=== PATIENT | male | born 1955 | race Caucasian/White ===

== ENCOUNTER 2017-11-22 07:52 | Day surgery (SDC) | payer BC ==
--- NOTE | 2017-11-03 14:13 | HISTORY AND PHYSICAL ---
DATE OF SERVICE: PANENDOSCOPY HISTORY AND PHYSICAL HISTORY OF PRESENT ILLNESS: The patient was seen in the office on 10/16/17 and scheduled for panendoscopy on 11/22/2017. He has a history of short-segment Steve's and was in need of surveillance EGD. There is no past history for high-grade dysplasia and his last EGD was 3 years ago. He was in need of surveillance colonoscopy as well. He has a past history of adenomatous colonic polyps. His last colonoscopy was 5 years ago. PAST MEDICAL HISTORY: Significant for hypertension and hyperlipidemia. He has been feeling well. Denied dysphagia, abdominal pain, melena or bright red blood per rectum. There has been no change in bowel habits and no weight loss. PHYSICAL EXAMINATION: GENERAL: Reveals a pleasant white male, in no acute distress. VITAL SIGNS: He is 5 feet 9 inches tall and 202.8 pounds. Blood pressure was 120/84. HEENT: Oral cavity revealed no evidence for exudate. He has a Mallampati class 3 oropharyngeal configuration. CHEST: Clear. CARDIOVASCULAR: Revealed regular rate and rhythm without murmur, S3 or S4. ABDOMEN: Soft, supple without mass, organomegaly or tenderness. EXTREMITIES: Revealed no cyanosis, clubbing or edema. ASSESSMENT: The patient is set up for a panendoscopy for reasons contained in the HPI on 11/22/2017. Prep instructions with Suprep kit were given and questions were answered. Job ID: [id number] DocumentID: [id number] Dictated Date: 11/03/2017 13:50:57 Fondant Machine Operator Date: 11/03/2017 14:12:24 Dictated By: VANDANA MARTINEZ MD [facility]
[~2017-11-22] VITALS: Ht 175.3 cm; Wt 93.0 kg
[~2017-11-22 07:52] MED LIST: ASP81TEC PO; ATOR40TA PO; ATOR40TA70 PO; BENA10TA2 PO; CHOL10003 PO; CHOL100084 PO; FENO134C PO; FENO145T2 PO; FEXO1TAB49 PO; LORA10TA76 PO; MULT-35 PO; MULT-974 PO; PANT20TA2 PO; PANT40TA3 PO
--- OUTSIDE RECORDS SUMMARY | 2017-11-22 07:56 | XMS REPORT ---
Author TIM Hoff Organization [employer] Address Unknown Phone Unavailable Care Team Providers Care Aircraft Navigator Name Role Phone TIM CARDENAS CP Unavailable Allergies No Known Allergies Problems Problem Type Condition Code Onset Dates Condition Status Problem ZOSTAVAX DX V05.8 Active Assessment Encounter for immunization Z23 Active Problem Need for prophylactic vaccination and inoculation, Influenza V04.81 Active Medications No Known Medications Procedures Procedure Coding System Code Date SINGLE IMMUNIZATION ADMIN CPT-4 25626 Apr 09, 2015 FLUARIX QUAD (3 & UP)-GSK-2014 CPT-4 99361 Apr 09, 2015 Results No Known Results Immunizations Vaccine Administration Date FLUARIX QUAD (3 & UP)-GSK-2014Apr 09, 2015 Summary Purpose [employer] Submission
[2017-11-22] MEDS ORDERED: D5 LR IV SOLUTION 1,000 ML IV ONE (08:01)
--- NOTE | 2017-11-22 08:02 | Pre-Op Note & Conscious Sedat ---
Pre-Operative Progress Note H&P Reviewed The H&P was reviewed, patient examined and no changes noted. Date H&P Reviewed: November 22, 2017 Time H&P Reviewed: 08:01 Conscious Sedation Pre-Proced ASA Class: 2 Airway Mallampati Classification: (rincon appropriate class) I. II. III, IV Lungs Heart ASA score ASA 1: a normal healthy patient ASA 2: a patient with a mild systemic disease (mid diabetes, controlled hypertension, obesity ASA 3: a patient with a severe systemic disease that limits activity (angina , COPD, prior Myocardial infarction) ASA 4: a patient with an incapacitating disease that is a constant threat to life (CHF, renal failure) ASA 5: a moribund patient not expected to survive 24 hrs. (ruptured aneurysm) ASA 6: a declared brain patient whose organs are being harvested. For emergent operations, add the letter E after the classification Grade 3 Sedation Plan: Analgesia, Amnesia, Plan communicated to team members, Discussed options with patient/fam, Discussed risks with patient/fam Note The patient is an appropriate candidate to undergo the planned procedure, sedation, and anesthesia. The patient immediately re-assessed prior to indication. VANDANA MARTINEZ MD November 22, 2017 08:02
[2017-11-22] MEDS ORDERED: D5 LR IV SOLUTION 1,000 ML IV STA (08:04)
[2017-11-22] MEDS ORDERED: HURRICAINE EXT TUBE (BENZOCAINE) XX PRN (08:15)
[2017-11-22] MEDS ORDERED: LIDOCAINE JELLY 2% (XYLOCAINE) 5 ML TUBE MM PRN (08:15)
[2017-11-22 08:18] VITALS: BP 149/91
[2017-11-22] MEDS ORDERED: fentaNYL INJECTION 100 MCG/2 ML AMP ONE (08:25)
[2017-11-22] MEDS ORDERED: MIDAZOLAM 2 MG/2 ML (VERSED) VIAL ONE ×4 (08:25→09:14)
[2017-11-22] MEDS ORDERED: LIDOCAINE JELLY 2% (XYLOCAINE) 5 ML TUBE ONE (08:25)
[2017-11-22] MEDS ORDERED: HURRICAINE EXT TUBE (BENZOCAINE) ONE (08:25)
[2017-11-22] MEDS: fentaNYL INJECTION 100 MCG/2 ML AMP IVP PRN ×2 (08:53→08:56)
[2017-11-22] MEDS: MIDAZOLAM 2 MG/2 ML (VERSED) VIAL IVP PRN ×3 (08:55→09:24)
[2017-11-22 10:00] VITALS: BP 128/69
[2017-11-22 10:25] VITALS: BP 114/71
[2017-11-22 10:57] VITALS: BP 114/71
--- NOTE | 2017-11-22 15:37 | OPERATIVE REPORT ---
DATE OF SERVICE: PANENDOSCOPY SUMMARY Colonoscopy was performed due to past history of colon polyps and EGD was performed for the evaluation of short-segment Steve's. The patient was placed in left lateral decubitus position. Prior to doing colonoscopy, digital rectal evaluation was performed. Anal sphincter tone was normal and the perianal reflexes intact. Prostate is mildly enlarged, anodular and nontender to digital inspection. No other abnormalities, no additional inspection of the anal canal or distal rectal vault. The colonoscope was then inserted into the rectum under direct visualization advanced to the cecum. The cecum was identified by identification of the ileocecal valve and cecal strap. Photographic documentation was obtained. Careful inspection was made as colonoscope was withdrawn. The quality of prep was good. FINDINGS: No evidence for internal or external hemorrhoids and the rectum was unremarkable. There were several small 1 mm hyperplastic appearing polyps. The cecum revealed a [id number] number of small to medium size diverticulum without evidence for diverticulitis. No other abnormalities were noted in the cecum. The descending colon, splenic flexure, transverse colon and hepatic flexure were unremarkable. Present in the mid ascending colon was a questionable 3/4 mm sessile polyp. It was photographed and biopsied and ablated with no subsequent blood loss. The remainder of the ascending colon and cecum were unremarkable. ASSESSMENT: 1. Several small 1 mm hyperplastic appearing rectal polyps were noted and left. 2. Fzny-jl-lwdfsfgk diverticular disease predominantly in the sigmoid colon without evidence for diverticulitis were noted. There was 1 distal ascending colonic diverticulum as well. 3. One diminutive polyp 3 to 4 mm in size from the mid ascending colonbiopsied, ablated and submitted for histopathology. 4. Digital rectal evaluation was compatible with mild benign prostatic hypertrophy. As long as there is no surprise on the above histopathology report, we will only advocate repeat screening colonoscopy in 5 to 10 years. We then proceeded with EGD. The endoscope was inserted in the oral cavity and under direct visualization, the esophagus was intubated. The scope was passed down the esophagus through the stomach and second portion of duodenum. Careful inspection was made and the endoscope was withdrawn. FINDINGS: The Z-line appeared to be somewhat proximally placed at 37 cm from the incisoral orifice. Again, noted was a 3 cm segment of Steve's esophagus without evidence for ulceration, nodularity or visual evidence to suggest malignancy. Four quadrant biopsies were obtained after photograph and submitted for histopathology. Small sliding hiatal hernia was present. There is no evidence for erosive esophagitis. The cardia of the stomach was unremarkable. There were several 1 to 2 mm fundal appearing polyps noted in the fundus with no other abnormalities being appreciated. The antrum, pylorus, pyloric channel, duodenal bulb and second portion of the duodenum were unremarkable. ASSESSMENT: Findings consistent with short segment Steve's with a small hiatal hernia are again noted. Approximately 3 cm of distal esophagus are involved without evidence for erosive esophagitis. Four quadrant biopsies were obtained and submitted for histopathology. As long as there is no evidence for high-grade dysplasia, we will likely be abdicating repeat surveillance EGD in 2 to 3 years. Job ID: [id number] DocumentID: [id number] Dictated Date: 11/22/2017 10:45:05 Technician Anatomic Pathology Date: 11/22/2017 15:36:44 Dictated By: VANDANA MARTINEZ MD [facility]
== END 2017-11-22 10:57 | disposition home or self-care (01) ==
LOC: ENDO 07:52
PROVIDERS: ATTEND Internal Medicine
DX: Z12.11 Encounter for screening for malignant neoplasm of colon (principal); K63.5 Polyp of colon; K62.1 Rectal polyp; K57.30 Diverticulosis of large intestine without perforation or abscess without bleeding; K22.70 Barrett's esophagus without dysplasia; K44.9 Diaphragmatic hernia without obstruction or gangrene; K31.7 Polyp of stomach and duodenum; N40.0 Benign prostatic hyperplasia without lower urinary tract symptoms; I10 Essential (primary) hypertension; E78.5 Hyperlipidemia, unspecified; Z86.010 Personal history of colon polyps
CPT/HCPCS: 88305

== ENCOUNTER 2020-11-09 05:34 | Outpatient (RCR) | payer BC ==
[~2020-11-09] VITALS: Ht 175.3 cm; Wt 93.1 kg
[~2020-11-09 05:34] MED LIST changes: -BENA10TA2 PO; +BENA10TA66 PO; +CHOL200012 PO; +MULT-1136 PO; -PANT40TA3 PO; +PANT40TA52 PO
== END 2020-11-09 09:19 | disposition home or self-care (01) ==
LOC: PREOP 05:34
PROVIDERS: ATTEND Internal Medicine
DX: Z01.812 Encounter for preprocedural laboratory examination (principal); Z20.822 Contact with and (suspected) exposure to COVID-19; Z87.19 Personal history of other diseases of the digestive system
CPT/HCPCS: 87635

== ENCOUNTER 2020-11-11 06:56 | Day surgery (SDC) | payer BC ==
--- NOTE | 2020-11-02 08:15 | HISTORY AND PHYSICAL ---
DATE OF SERVICE: EGD HISTORY AND PHYSICAL HISTORY OF PRESENT ILLNESS: The patient is a 65-year-old white male being set up for surveillance EGD due to past history of short segment Steve's. He last accomplished EGD 3 years ago, at which time no dysplasia was noted. He reports that he has been feeling well. He denies any heartburn symptoms on proton pump inhibitor therapy and has had no dysphagia. He denies melena or bright red blood per rectum. Overall, he has been feeling well. Other health problems addressed include hyperlipidemia, nonalcoholic fatty liver disease with overweight status, BMI between 30 and 35. The patient states he has been feeling well and voices no complaints. PHYSICAL EXAMINATION: GENERAL: Revealed a white male, who appeared to be in no acute distress. HEENT: Unremarkable. CHEST: Clear. CARDIOVASCULAR: Regular rate and rhythm without murmur, S3 or S4. VITAL SIGNS: Blood pressure 140/80, weight was up 4 pounds to 213. ABDOMEN: Soft, supple without mass, organomegaly or tenderness. EXTREMITIES: Reveal no cyanosis, clubbing or edema. ASSESSMENT AND PLAN: 1. The patient is being set up for surveillance EGD due to past history of short segment Steve's without dysplasia. 2. Overweight status. Discussed the importance of regular physical activity, portion control with goal of weight loss 1 to 2 pounds per month. Blood tests were reviewed with the patient and with weight gain, his AST was up slightly to 43 with no significant alcohol consumption reported. Discussed the association with fatty liver, increased risk for vascular disease as well as progressive liver disease over time and the importance of weight loss. Remainder of his chemistry panel, lipid panel and PSA results were unremarkable. Job ID: [id number] DocumentID: [id number] Dictated Date: 10/17/2020 08:55:34 Gang Boss Date: 10/17/2020 09:19:49 Dictated By: VANDANA MARTINEZ MD
[~2020-11-11] VITALS: Ht 175.3 cm; Wt 93.1 kg
[2020-11-11] VITALS (8 sets, daily range): BP systolic 120–158; BP diastolic 57–88
[~2020-11-11 06:56] MED LIST changes: +D5 LR IV SOLUTION 1,000 ML IV ONE
[2020-11-11] MEDS ORDERED: D5 LR IV SOLUTION 1,000 ML IV STA (07:34)
[2020-11-11] MEDS ORDERED: LIDOCAINE JELLY 2% 6 ML SYRINGE ONE (07:38)
[2020-11-11] MEDS ORDERED: HURRICAINE EXT TUBE (BENZOCAINE) ONE (07:38)
[2020-11-11] MEDS ORDERED: fentaNYL INJ 100 MCG/2 ML AMP ONE (07:38)
[2020-11-11] MEDS ORDERED: MIDAZOLAM 5 MG/5 ML (VERSED) VIAL ONE (07:38)
[2020-11-11] MEDS ORDERED: MIDAZOLAM 5 MG/5 ML (VERSED) VIAL IV ONE (07:45)
[2020-11-11] MEDS ORDERED: LIDOCAINE JELLY 2% 6 ML SYRINGE MM PRN (07:45)
[2020-11-11] MEDS ORDERED: HURRICAINE EXT TUBE (BENZOCAINE) XX PRN (07:45)
[2020-11-11] MEDS: fentaNYL INJ 100 MCG/2 ML AMP IVP ONE (07:58)
--- NOTE | 2020-11-11 08:16 | Pre-Op Note & Conscious Sedat ---
Pre-Operative Progress Note H&P Reviewed The H&P was reviewed, patient examined and no changes noted. Date H&P Reviewed: November 11, 2020 Time H&P Reviewed: 07:40 Conscious Sedation Pre-Proced ASA Score 2 For ASA 3 and 4: Consider anesthesia and medical clearance. Also, for patients with a history of failed moderate sedation consider anesthesia. Airway Lungs Heart ASA score ASA 1: a normal healthy patient ASA 2: a patient with a mild systemic disease (mid diabetes, controlled hypertension, obesity ASA 3: a patient with a severe systemic disease that limits activity (angina, COPD, prior Myocardial infarction) ASA 4: a patient with an incapacitating disease that is a constant threat to life (CHF, renal failure) ASA 5: a moribund patient not expected to survive 24 hrs. (ruptured aneurysm) ASA 6: a declared brain- patient whose organs are being harvested. For emergent operations, add the letter E after the classification Mallampati Classification Grade 3 Sedation Plan Analgesia, Amnesia, Plan communicated to team members, Discussed options with patient/fam, Discussed risks with patient/fam The patient is an appropriate candidate to undergo the planned procedure, sedation, and anesthesia. The patient immediately re-assessed prior to indication. VANDANA MARTINEZ MD November 11, 2020 08:15
--- NOTE | 2020-11-11 17:55 | OPERATIVE REPORT ---
DATE OF SERVICE: EGD SUMMARY INDICATION FOR THE PROCEDURE: Surveillance, history of short segment Steve's. DESCRIPTION OF PROCEDURE: The patient was placed in the left lateral decubitus position. The endoscope was inserted into the oral cavity and under direct visualization, esophagus was intubated. The endoscope was passed down the esophagus, stomach and second portion of the duodenum. Careful inspection was made as the endoscope was withdrawn. The patient tolerated the procedure well. FINDINGS: The posterior pharynx, epiglottis, arytenoid aperture, true and false vocal folds were unremarkable to visual inspection. Proximal and mid esophagus were unremarkable. The Z line was proximally placed at 35 cm from the inscissoral orifice secondary to small sliding hiatal hernia and short segment Steve's change. No evidence for ulceration was noted. Photograph was obtained. Four quadrant biopsies were obtained and submitted for histopathology. The cardia and fundus other than several small fundal appearing polyps was unremarkable with no inflammatory change. The antrum, pylorus, pyloric channel, duodenal bulb and second portion of duodenum were unremarkable as well. ASSESSMENT: Findings of short segment Steve's unchanged without evidence for erosive esophagitis or malignancy. Four quadrant biopsies were obtained and we will await histopathology report with likely 3-year screening interval as long as dysplasia is not identified. Continue PPI therapy. Job ID: [id number] DocumentID: [id number] Dictated Date: 11/11/2020 11:28:27 Water Sander Date: 11/11/2020 17:55:14 Dictated By: VANDANA MARTINEZ MD [facility]
== END 2020-11-11 08:50 | disposition home or self-care (01) ==
LOC: ENDO 06:56
PROVIDERS: ATTEND Internal Medicine
DX: K22.70 Barrett's esophagus without dysplasia (principal); K31.89 Other diseases of stomach and duodenum; K44.9 Diaphragmatic hernia without obstruction or gangrene; K76.0 Fatty (change of) liver, not elsewhere classified; E66.3 Overweight; E78.5 Hyperlipidemia, unspecified; Z20.822 Contact with and (suspected) exposure to COVID-19

== ENCOUNTER → 2021-07-10 | Outpatient (CLI) | payer BC ==
[~2021-07-10] MED LIST changes: -D5 LR IV SOLUTION 1,000 ML IV ONE
== END ==
LOC: LABNPT 09:14
PROVIDERS: ATTEND Internal Medicine
DX: Z20.822 Contact with and (suspected) exposure to COVID-19 (principal)
CPT/HCPCS: 87635

== ENCOUNTER 2023-01-02 06:59 | Outpatient (CLI) | payer BC ==
[~2023-01-02] VITALS: Ht 175.3 cm; Wt 95.5 kg
[~2023-01-02 06:59] MED LIST changes: -FENO134C PO; +FENO134C21 PO
[2023-01-04] MEDS ORDERED: FEXO-14 PO (12:45)
== END 2023-01-04 12:55 | disposition home or self-care (01) ==
LOC: PREOP 06:59
PROVIDERS: ATTEND Internal Medicine
DX: Z01.818 Encounter for other preprocedural examination (principal)

== ENCOUNTER 2023-01-11 07:18 | Day surgery (SDC) | payer BC, MEDICARE ==
--- NOTE | 2022-12-31 10:26 | HISTORY AND PHYSICAL ---
DATE OF SERVICE: 01/11/2023 PANENDOSCOPY SUMMARY The patient is undergoing EGD evaluation for Steve's esophagus surveillance and colonoscopy due to the past history of colon polyps. It has been 5 years since his last colonoscopy. He reports that he has been not feeling well, on proton pump inhibitor therapy, has had no dysphagia, no odynophagia, no significant heartburn symptoms. He denies melena or bright red blood per rectum. He has had no abdominal pain. Last year, he had some symptoms suspicious for diverticulitis, this was treated empirically. He has had no recurrence of symptoms. Since I last saw him, he had been in the for melanoma screen. His sister was diagnosed with melanoma at the age of 60, living at the age of 64 as a nurse and orthopedic group in [place]. He reports that his exam was unremarkable. I have taken 1 lesion off of his back, but was not malignant. PHYSICAL EXAMINATION: GENERAL: Reveals a white male, appeared to be in no acute distress. VITAL SIGNS: Weight was down 1.2 pounds at 210.8. Blood pressure 114/70. CHEST: Clear. CARDIOVASCULAR: Reveals regular rate and rhythm without murmur, S3, or S4. ABDOMEN: Soft, supple without mass, organomegaly, or tenderness. EXTREMITIES: No cyanosis, clubbing or edema. ASSESSMENT AND PLAN: The patient is undergoing diagnostic EGD for surveillance due to history of short segment Steve's. He is undergoing diagnostic colonoscopy due to past history of colon polyps, 5 years since his last colonoscopy. Prep instructions were given and questions were answered. The patient will keep his regularly scheduled appointment in May for followup of insulin resistance and hyperlipidemia. He has no known history of coronary artery disease. Job ID: [id number] DocumentID: [id number] Dictated Date: 12/26/2022 11:25:38 Emr Trainer Date: 12/26/2022 12:02:00 Dictated By: VANDANA MARTINEZ MD
[~2023-01-11] VITALS: Ht 175.3 cm; Wt 95.5 kg
[~2023-01-11 07:18] MED LIST changes: +FEXO-14 PO
[2023-01-11] MEDS ORDERED: LACTATED RINGERS 1,000 ML IV STA (07:19)
[2023-01-11] MEDS ORDERED: HURRICAINE EXT TUBE (BENZOCAINE) XX PRN (07:30)
[2023-01-11 07:40] VITALS: BP 139/93
--- NOTE | 2023-01-11 07:54 | Pre-Op Note & Conscious Sedat ---
Pre-Operative Progress Note Date H&P Reviewed: Jan 11, 2023 Time H&P Reviewed: 07:53 History & Physical: H&P Reviewed, Patient Examed, No changes noted Pre-Op Diagnosis: baretts esophagus and screening colon Moderate Sedation PreProcedure ASA Score 2 Airway Lungs Heart ASA score ASA 1: a normal healthy patient ASA 2: a patient with a mild systemic disease (mid diabetes, controlled hypertension, obesity ASA 3: a patient with a severe systemic disease that limits activity (angina, COPD, prior Myocardial infarction) ASA 4: a patient with an incapacitating disease that is a constant threat to life (CHF, renal failure) ASA 5: a moribund patient not expected to survive 24 hrs. (ruptured aneurysm) ASA 6: a declared brain- patient whose organs are being harvested. For emergent operations, add the letter E after the classification Mallampati Classification Grade 2 Sedation Plan Analgesia, Amnesia, Plan communicated to team members, Discussed options with patient/fam, Discussed risks with patient/fam The patient is an appropriate candidate to undergo the planned procedure, sedation, and anesthesia. The patient immediately re-assessed prior to indication. VANDANA MARTINEZ MD Jan 11, 2023 07:53
[2023-01-11] MEDS ORDERED: PROPOFOL INJECTION 50 ML IV ONE (08:11)
--- NOTE | 2023-01-11 08:29 | Anesthesia-General Post-Op ---
MAC Patient Condition Mental Status/LOC: Same as Preop Cardiovascular: Satisfactory Nausea/Vomiting: Absent Respiratory: Satisfactory Pain: Controlled Complications: Absent Post Op Complications Complications None Follow Up Care/Instructions Patient Instructions None needed. Anesthesiology Discharge Order Discharge Order Patient is doing well, no complaints, stable vital signs, no apparent adverse anesthesia problems. No complications reported per nursing. MAURY ROBLES CRNA Jan 11, 2023 08:29
[2023-01-11 08:30] VITALS: BP 109/70
--- NOTE | 2023-01-11 08:33 | Progress Note-Post Operative ---
Post-Procedure Note Physician (s)/Brush And Broom Clipper (s) Physician VANDANA MARTINEZ MD Pre-Procedure Diagnosis Pre-Procedure Diagnosis: baretts esophagus and screening colon Post-Procedure Diagnosis Post-operative diagnosis: the endoscope was inserted into the oral cavity and under direct visualization the esophagus is intubated. The endoscope was passed down the esophagus to stomach and second portion of the duodenum. A careful inspection was made as the endoscope was withdrawn. Findings: The posterior pharynx epiglottis arytenoid aperture and true and false vocal folds were unremarkable gross inspection. Proximal and midesophagus were unremarkable. There were findings compatible short segment Steve's approximately 2 cm of the distal esophagus being involved. There was no erythema or ulceration nodularity or stricture formation noted. Photographic documentation obtained. Four-quadrant biopsies were obtained and submitted for histopathology. The cardia of the stomach was unremarkable. One 6 mm fundal appearing polyp was noted in the mid fundus greater curvature stomach otherwise unremarkable photograph was obtained. The pylorus pyloric channel duodenal bulb and second portion of the duodenum were unremarkable. Assessment Findings again compatible with short segment Steve's without evidence for erosive esophagitis or malignancy were noted. Four-quadrant biopsies were obtained from the Steve's segment approximately involving the distal 2 cm of esophagus. One 6 mm fundal appearing polyp was noted along the greater curvature in the mid fundus with no other abnormalities being appreciated. Will await histopathology report before making recommendations for future surveillance EGD. We then proceeded with colonoscopy. Prior to undergoing colonoscopy digital rectal evaluation was performed. Anal suture tone was normal and the perianal reflexes intact. Prostate is normal in size and a nodular on digital inspection. No abnormalities noted on digital inspection of the anal canal or distal rectal vault. The colonoscope was then inserted into the rectum and under direct visualization advanced to the cecum. The cecum was identified by identification of the ileocecal valve and the cecal strap. Photographic documentation was obtained. Careful suction was made as the colonoscope withdrawn. Quality prep was good. Findings there are no evidence for external hemorrhoids 1 grade 1 internal hemorrhoid complex was noted. Present the proximal rectum was a diminutive hyperplastic appearing polyp it was photographed and biopsied and ablated with no subsequent blood loss. Present at 35 cm from the anal verge in the mid sigmoid colon was a pedunculated polyp approximately 12 mm in size it was snared and removed in its entirety with no blood loss. Moderate diverticular disease was noted in the sigmoid and descending colon and to a lesser extent throughout the transverse colon as well without evidence of diverticulitis. The splenic flexure ascending colon and cecum were normal and no other areas neoplasia are identified in these areas of the colon. A/P 1. 1 approximately 12 mm pedunculated polyp was removed via snare and submitted for histopathology from 35 cm in the mid sigmoid colon without blood loss. A 4 mm sessile hyperplastic appearing polyp was removed via hot forceps from the proximal rectum. Will await histopathology report likely recommend a 3-year surveillance colonoscopy as well as EGD for Steve's esophagus. Moderate diverticular disease noted throughout the sigmoid colon descending colon and to a lesser extent the transverse colon is presence without evidence for diverticulitis. 1 grade 1 internal hemorrhoid complex was noted with no other abnormalities being appreciated on today's colonoscopy. VANDANA MARTINEZ MD Jan 11, 2023 08:33
[2023-01-11 08:35] VITALS: BP 136/86
[2023-01-11 08:54] VITALS: BP 136/86
== END 2023-01-11 09:10 | disposition home or self-care (01) ==
LOC: ENDO 07:18
PROVIDERS: ATTEND Internal Medicine
DX: Z12.11 Encounter for screening for malignant neoplasm of colon (principal); K22.70 Barrett's esophagus without dysplasia; K63.5 Polyp of colon; K62.1 Rectal polyp; K31.7 Polyp of stomach and duodenum; K64.0 First degree hemorrhoids; K57.30 Diverticulosis of large intestine without perforation or abscess without bleeding; E88.81 Metabolic syndrome and other insulin resistance; E78.5 Hyperlipidemia, unspecified; Z79.899 Other long term (current) drug therapy